=== PATIENT | female | born 1955 | race Caucasian/White ===

== ENCOUNTER → 2016-06-08 | Day surgery (SDC) | payer OTHER ==
[2016-05-30 10:51] VITALS: Ht 154.9 cm; Wt 106.8 kg
[~2016-06-08] VITALS: Ht 154.9 cm; Wt 106.8 kg
[~2016-06-08] MED LIST: ATOR-22 PO; CALCCHW57 PO; CHOL1000 PO; LEVO75TA5 PO; LIDOCAINE HCL 2% 2 ML VIAL (20MG/ML) ONE; MIDAZOLAM HCL 1 MG/ML 2ML VIAL ONE; ONDANSETRON INJ 2 MG/ML 2 ML VIAL ONE; PROPOFOL IV EMULSION 10 MG/ML 20 ML VIAL IV ONE; SPIR25TA PO; VENL150T33 PO; VNTHFA/IN INH
--- NOTE | 2016-06-08 12:42 | Endo History and Physical ---
History & Physical Date of Service: Jun 08, 2016. Chief Complaint: history of adenoma of colon Referring Physician: Love NAIDU History of Present Illness 60 yo CF who presents for colonoscopy secondary to history of colon polyps. Past Surgical History Hx Cardiac Surgery: No Hx Internal Defibrillator: No Hx Pacemaker: No Hx Abdominal Surgery: Yes (PARTIAL HYSTER, TUBAL LIGATION) Hx of Implantable Prosthesis: No Hx Post-Op Nausea and Vomiting: No Hx Cancer Surgery: No Hx Thoracic Surgery: No Hx Orthopedic: No Hx Urinary Tract Surgery: No Family History None Social History Smoking Status: Never Smoker Hx Substance Use: No Hx Alcohol Use: No Allergies Coded Allergies: No Known Allergies (Verified , 06/08/16) Current Medications Reported Home Medications Medications Dose Route/Sig Max Daily Dose Days Date Category Ventolin Hfa (Albuterol) 200 Puffs/70456 Mcg Aers 2-4 Puffs INH Q6H PRN 05/30/16 Reported Calcium 1200 (Calcium Carbonate-Vitamin D W/) 1 Chw Chw 1 Tab PO QAM 05/30/16 Reported Vitamin D3 (Cholecalciferol) 1,000 Unit Tab 1,000 Unit PO QAM 04/01/16 Reported Aldactone (Spironolactone) 25 Mg Tab 25 Mg PO HS 04/01/16 Reported Lipitor (Atorvastatin Calcium) 20 Mg Tab 20 Mg PO HS 04/01/16 Reported Venlafaxine Hcl Er (Venlafaxine Hcl) 150 Mg Tab 150 Mg PO QAM 04/01/16 Reported Levothyroxine Sodium 75 Mcg Tab 75 Mcg PO QAM 04/01/16 Reported Vital Signs Weight (Kilograms): 106.82 Height (Feet): 5 Height (Inches): 1 Date Time Temp Pulse Resp B/P Pulse Ox O2 Delivery O2 Flow Rate FiO2 06/08/16 12:35 36.2 95 18 154/85 96 Room Air Physical Exam General Appearance: WD/WN, no apparent distress Respiratory/Chest: Auscultation: breath sounds normal Cardiovascular: Heart Auscultation: RRR Abdomen: Bowel Sounds: normal Inspection & Palpation: soft, non-distended, no tenderness, guarding & rebound Assessment and Plan Assessment: 60 yo CF who presents for colonoscopy secondary to history of colon polyps. Plan: Proceed with colonoscopy.
--- NOTE | 2016-06-08 13:18 | GI REPORT ---
Procedure Date: 06/08/2016 12:39 PM Procedure: Colonoscopy Indications: High risk colon cancer surveillance: Personal history of colonic polyps Medicines: Monitored Anesthesia Care Complications: No immediate complications. Estimated Blood Loss: Estimated blood loss: none. Procedure: Pre-Anesthesia Assessment: - Prior to the procedure, a History and Physical was performed, and patient medications and allergies were reviewed. The patient's tolerance of previous anesthesia was also reviewed. The risks and benefits of the procedure and the sedation options and risks were discussed with the patient. All questions were answered, and informed consent was obtained. Prior Anticoagulants: The patient has taken no previous anticoagulant or antiplatelet agents. ASA Grade Assessment: III - A patient with severe systemic disease. After reviewing the risks and benefits, the patient was deemed in satisfactory condition to undergo the procedure. After I obtained informed consent, the scope was passed under direct vision. Throughout the procedure, the patient's blood pressure, pulse, and oxygen saturations were monitored continuously. The scope was introduced through the anus and advanced to the terminal ileum. The colonoscopy was performed without difficulty. The patient tolerated the procedure well. The quality of the bowel preparation was good. The ileocecal valve, appendiceal orifice, and rectum were photographed. Findings: Two sessile polyps were found in the rectum and in the descending colon. The polyps were 5 to 8 mm in size. These polyps were removed with a hot snare. Resection and retrieval were complete. Scattered small-mouthed diverticula were found in the entire colon. Non-bleeding internal hemorrhoids were found during retroflexion. The hemorrhoids were small. Impression: - Two 5 to 8 mm polyps in the rectum and in the descending colon, removed with a hot snare. Resected and retrieved. - Diverticulosis in the entire examined colon. - Non-bleeding internal hemorrhoids. Recommendation: - Resume previous diet. - Continue present medications. - Repeat colonoscopy for surveillance based on pathology results. - Return to primary care physician as previously scheduled. Cliff Dimas, DO 06/08/2016 1:18:18 PM This report has been signed electronically. Note Initiated On: 06/08/2016 12:39 PM
--- NOTE | 2016-06-08 13:20 | Discharge Instructions ---
Endoscopy Patient Instructions Date / Procedure(s) Performed Jun 08, 2016. Colonoscopy Allergy Information Coded Allergies: No Known Allergies (Verified , 06/08/16) Discharge Date / Findings Jun 08, 2016. Colon polyps Diverticulosis Internal hemorrhoids Medication Instructions OK to resume all medications today as prescribed. Reported Home Medications Medications Dose Route/Sig Max Daily Dose Days Date Category Ventolin Hfa (Albuterol) 200 Puffs/32306 Mcg Aers 2-4 Puffs INH Q6H PRN 05/30/16 Reported Calcium 1200 (Calcium Carbonate-Vitamin D W/) 1 Chw Chw 1 Tab PO QAM 05/30/16 Reported Vitamin D3 (Cholecalciferol) 1,000 Unit Tab 1,000 Unit PO QAM 04/01/16 Reported Aldactone (Spironolactone) 25 Mg Tab 25 Mg PO HS 04/01/16 Reported Lipitor (Atorvastatin Calcium) 20 Mg Tab 20 Mg PO HS 04/01/16 Reported Venlafaxine Hcl Er (Venlafaxine Hcl) 150 Mg Tab 150 Mg PO QAM 04/01/16 Reported Levothyroxine Sodium 75 Mcg Tab 75 Mcg PO QAM 04/01/16 Reported Provider Instructions Activity Restrictions - No exercising or heavy lifting for 24 hours. - Do not drink alcohol the day of the procedure. - Do not drive a car or operate machinery until the day after the procedure. - Do not make any important decisions or sign important papers in 24 hours after the procedure. Following Day: - Return to full activity which may include returning to work/school. Diet Start your diet with liquids and light foods (jello, soup, juice, toast). Then eat your usual diet if not nauseated. Treatment For Common After Affects For mild abdominal pain, bloating, or excessive gas: - Rest - Eat lightly - Lie on right side Follow-Up Information Follow-up with Love NAIDU as scheduled Anesthesia Information What You Should Know You have had a procedure that required some medicine to reduce anxiety and discomfort. This treatment is called moderate sedation. After receiving the treatment, you may be sleepy, but you will be able to breathe on your own. The effects of the treatment may last for several hours. Follow these instructions along with Activity/Diet recommendations noted above: * Do NOT do anything where dizziness or clumsiness would be dangerous. * Rest quietly at home today, then you can be up and about tomorrow. * Have a responsible person stay with you the rest of today. * You may have had an I.V. today. If so, you may take the dressing off later today. Recommendations Call your doctor if: * Trouble breathing * Continuous vomiting for more than 24 hours * Temperature above 101 degrees * Severe abdominal pain or bloating * Pain not relieved by pain medicine ordered * There is increased drainage or redness from any incision * A large amount of rectal bleeding greater than 2-3 tablespoons. (If you had a polyp/s removed or have hemorrhoids, a small amount of blood - from the rectum is to be expected.) * You have any unanswered questions or concerns. IN THE EVENT OF A SERIOUS EMERGENCY, GO TO THE NEAREST EMERGENCY ROOM Your discharge instructions were prepared by provider Cliff Dimas. Patient Instructions Signature Page Sarah Alicia Patient (or Guardian) Signature/Date: I have read and understand the instructions given to me by my caregivers. Caregiver/RN/Doctor Signature/Date: The above-named patient and/or guardian has received patient instructions on this date. + Original Patient Signature Page (only) stays with chart. Please make copy for patient.
[2016-06-08 13:38] VITALS: BP 143/74; PULSE 78; O2SAT 96
--- NOTE | 2016-06-08 13:56 | Anesthesiology Progress Note ---
Anesthesia Post Op Note Date & Time Jun 08, 2016 at 13:56 Vital Signs Pain Intensity: 0 Vital Signs Past 12 Hours Date Time Temp Pulse Resp B/P Pulse Ox O2 Delivery O2 Flow Rate FiO2 06/08/16 13:38 78 16 143/74 96 Room Air 06/08/16 13:23 83 16 131/99 96 Room Air 06/08/16 13:08 85 16 130/82 96 Room Air 06/08/16 12:35 36.2 95 18 154/85 96 Room Air Notes Mental Status: alert / awake / arousable, participated in evaluation Pt Amnestic to Procedure: Yes Nausea / Vomiting: adequately controlled Pain: adequately controlled Airway Patency, RR, SpO2: stable & adequate BP & HR: stable & adequate Hydration State: stable & adequate Anesthetic Complications: no major complications apparent
== END | disposition home or self-care (01) ==
LOC: C.GI 12:08
PROVIDERS: ATTEND Internal Medicine
DX: Z12.11 Encounter for screening for malignant neoplasm of colon (principal); Z86.010 Personal history of colon polyps; D12.4 Benign neoplasm of descending colon; K62.1 Rectal polyp; Z90.710 Acquired absence of both cervix and uterus; Z98.51 Tubal ligation status

== ENCOUNTER → 2016-10-25 | Outpatient (CLI) | payer OTHER ==
[~2016-10-25] MED LIST changes: -LIDOCAINE HCL 2% 2 ML VIAL (20MG/ML) ONE; -MIDAZOLAM HCL 1 MG/ML 2ML VIAL ONE; -ONDANSETRON INJ 2 MG/ML 2 ML VIAL ONE; -PROPOFOL IV EMULSION 10 MG/ML 20 ML VIAL IV ONE
[2016-10-25 13:28] LABS: BLOOD UREA NITROGEN 10 mg/dl (7-18); BUN/CREATININE RATIO 12.6 (10-20); CALCIUM 8.9 mg/dl (8.5-10.1); CARBON DIOXIDE 27 mmol/L (21-32); CHLORIDE 107 mmol/L (98-107); CREATININE 0.81 mg/dl (0.60-1.20); GLUCOSE 87 mg/dl (70-99); POTASSIUM 4.1 mmol/L (3.5-5.1); SODIUM 141 mmol/L (136-145)
== END | disposition home or self-care (01) ==
LOC: C.LABPVFM 09:43
PROVIDERS: ATTEND Nurse Practitioner
DX: E03.9 Hypothyroidism, unspecified (principal); E78.00 Pure hypercholesterolemia, unspecified

== ENCOUNTER → 2017-04-23 | Outpatient (CLI) | payer OTHER ==
[2017-04-23 14:12] LABS: BLOOD UREA NITROGEN 15 mg/dl (7-18); BUN/CREATININE RATIO 16.4 (10-20); CALCIUM 9.3 mg/dl (8.5-10.1); CARBON DIOXIDE 28 mmol/L (21-32); CHLORIDE 103 mmol/L (98-107); CHOLESTEROL 189 mg/dl (0-200); CREATININE 0.91 mg/dl (0.60-1.20); GLUCOSE 95 mg/dl (70-99); POTASSIUM 4.4 mmol/L (3.5-5.1); SODIUM 136 mmol/L (136-145)
[2017-04-23 14:15] LABS: HDL CHOLESTEROL 47 mg/dl; LDL CHOLESTEROL CALCULATED 119 mg/dl; TRIGLYCERIDES 116 mg/dl (0-150); VERY LOW DENSITY LIPOPROT CALC 23 mg/dl
== END | disposition home or self-care (01) ==
LOC: C.LABPVFM 09:07
PROVIDERS: ATTEND Nurse Practitioner
DX: E78.00 Pure hypercholesterolemia, unspecified (principal); E03.9 Hypothyroidism, unspecified

== ENCOUNTER → 2017-05-09 | Outpatient (CLI) | payer OTHER ==
[~2017-05-09] MED LIST changes: +OPTIRAY 320 IV PRN
--- NOTE | 2017-05-09 13:40 | DIAGNOSTIC IMAGING REPORT ---
(CHEST) THORAX WITH CLINICAL HISTORY: 61 years-old Female presenting with R91.8 Multiple pulmonary nodulesCompared to previous CT scan in. TECHNIQUE: Multidetector CT imaging of the chest was performed after the administration of intravenous contrast. IV contrast: 119 mL of Optiray. A dose lowering technique was used consistent with the principles of ALARA (as low as reasonably achievable). COMPARISON: 02/05/2014. CT DOSE (mGy.cm): The estimated cumulative dose is 741.73 mGy.cm. FINDINGS: Car Repossessor topogram: Unremarkable. On soft tissue windows, normal thyroid and thoracic inlet. Persistent enlarged soft tissue nodules at the right hilum, likely enlarged right hilar lymph nodes (series 4 image 127). This has been stable since 2012. Few scattered subcentimeter mediastinal lymph nodes unchanged. Atherosclerosis of the aorta. Normal heart size. No pericardial or pleural effusion. Upper abdomen normal. On lung windows, minimal dependent changes likely atelectasis. Solid 8 mm right lower lobe nodule (series 4 image 138), unchanged. Solid lobular 16 mm lesion in the medial basal left lower lobe (series 4 image 203), unchanged from prior. Few additional bilateral punctate pulmonary nodules unchanged from prior. No new nodule. Airways patent. On bone windows, mild degenerative changes of the thoracic spine. IMPRESSION: 1. Stable bilateral pulmonary nodules, the largest measuring 16 mm in the left lower lobe. These have been unchanged since 2012 and are, therefore, benign. 2. Stable suspected right hilar lymph nodes. This is also unchanged since 2012. 3. No new pulmonary nodule or acute intrathoracic pathology. Electronically signed by: Dio Moreira M.D. 05/09/2017 1:38 PM Dictated Date/Time: 05/09/2017 1:30 PM
== END | disposition home or self-care (01) ==
LOC: C.CTS 13:15
PROVIDERS: ATTEND Nurse Practitioner
DX: R91.8 Other nonspecific abnormal finding of lung field (principal)